=== PATIENT | male | born 1975 | race Caucasian/White ===

== ENCOUNTER → 2016-05-04 | Outpatient (CLI) | payer BC ==
--- NOTE | 2016-05-04 18:17 | DX ---
Right Hand 3 Views History: Sports injury, collided with another player, pain over 5th metacarpal. Comparison: None available. Findings: There is a nondisplaced transverse fracture through the base of the 5th metacarpal with no significant angulation. The radial aspect of the fracture line is difficult to visualize. Bone island is noted in the middle phalanx of the 3rd finger. Alignment is normal. Impression: Nondisplaced transverse fracture through the base of the 5th metacarpal.
== END ==
LOC: BMCIMAGING 17:19
PROVIDERS: ATTEND Family Medicine
DX: S62.346A Nondisplaced fracture of base of fifth metacarpal bone, right hand, initial encounter for closed fracture (principal)